=== PATIENT | male | born 1985 | race Two or more races ===

== ENCOUNTER 2022-03-26 19:02 | Emergency (ER) | payer OTHER ==
[~2022-03-26] VITALS: Ht 175.3 cm; Wt 109.8 kg
[~2022-03-26 19:02] MED LIST: KETO10TA2 PO
[2022-03-26] MEDS ORDERED: ONDANSETRON ODT8 MG PO (23:33)
[2022-03-26] MEDS ORDERED: PEPCID AC20 MG PO (23:33)
== END 2022-03-27 01:29 | disposition home or self-care (01) ==
LOC: ER 19:02
DX: K52.9 Noninfective gastroenteritis and colitis, unspecified (principal)

== ENCOUNTER 2024-09-18 08:15 | Emergency (ER) | payer OTHER ==
[~2024-09-18] VITALS: Ht 175.3 cm; Wt 112.0 kg
[~2024-09-18 08:15] MED LIST changes: +ONDANSETRON ODT8 MG PO; +PEPCID AC20 MG PO
[2024-09-18] MEDS ORDERED: GUAIFENESIN/DEXTROMETHORPHAN 100MG/10ML BLIST.PACK PO ONE ×2 (09:25→09:30)
[2024-09-18 09:48] LABS: BASO % 0.5 % (0.1-1.2); EOS # 0.11 (0.04-0.54); EOS % 1.7 % (0.7-7.0); LYMPH # 2.26 (1.18-3.74); LYMPH % 35.9 % (19.3-53.1); MEAN PLATELET VOLUME 8.80 fl (9.4-12.4); MONO # 0.50 (0.24-0.82); MONO % 7.9 % (4.7-12.5); NEUT # 3.38 (1.56-6.13); NEUT % 53.7 % (34.0-71.1); RED CELL DISTRIBUTION WIDTH 13.2 % (11.6-14.4)
[2024-09-18 10:17] LABS: COVID-19 AG NEGATIVE (NEGATIVE)
[2024-09-18] MEDS ORDERED: ZYRTEC10 M3 PO (12:12)
[2024-09-18] MEDS ORDERED: GILTUSS COUGH-118 M1 PO (12:12)
[2024-09-18 12:58] VITALS: BP 135/88; O2SAT 96
== END 2024-09-18 12:59 | disposition home or self-care (01) ==
LOC: ER 08:15
PROVIDERS: Preventive Medicine Public Health & General Preventive Medicine
DX: J30.9 Allergic rhinitis, unspecified (principal); R09.82 Postnasal drip; Z20.822 Contact with and (suspected) exposure to COVID-19; Z87.09 Personal history of other diseases of the respiratory system

== ENCOUNTER 2025-01-04 15:55 | Emergency (ER) | payer OTHER ==
[~2025-01-04] VITALS: Ht 175.3 cm; Wt 112.5 kg
[~2025-01-04 15:55] MED LIST changes: +GILTUSS COUGH-118 M1 PO; +ZYRTEC10 M3 PO
[2025-01-04] MEDS ORDERED: ONDANSETRON HCL 2 MG/ML VIAL ONE (17:24)
[2025-01-04] MEDS ORDERED: FAMOTIDINE/PF 20 MG/2 ML VIAL ONE (17:25)
[2025-01-04] MEDS ORDERED: 0.9 % SODIUM CHLORIDE 1,000 ML IV SCH (17:30)
[2025-01-04] MEDS ORDERED: 0.9 % SODIUM CHLORIDE 1,000 ML IV ONE (17:30)
[2025-01-04] MEDS ORDERED: FAMOtidine 10 MG/ML (4ML VIAL) IV PUSH ONE (17:30)
[2025-01-04] MEDS ORDERED: ONDANSETRON HCL 2 MG/ML VIAL IV ONE (17:30)
[2025-01-04] MEDS ORDERED: MORPHINE SULFATE 4 MG/ML CARTRIDGE IV ONE ×2 (17:30→18:45)
[2025-01-04 17:53] LABS: BASO % 0.2 % (0.1-1.2); EOS # 0.03 (0.04-0.54); EOS % 0.3 % (0.7-7.0); LYMPH # 2.05 (1.18-3.74); LYMPH % 17.6 % (19.3-53.1); MEAN PLATELET VOLUME 8.80 fl (9.4-12.4); MONO # 0.61 (0.24-0.82); MONO % 5.2 % (4.7-12.5); NEUT # 8.93 (1.56-6.13); NEUT % 76.4 % (34.0-71.1); RED CELL DISTRIBUTION WIDTH 13.2 % (11.6-14.4)
[2025-01-04 18:09] LABS: ERYTHROCYTE SEDIMENTATION RATE 8 mm/hr (0-15)
[2025-01-04 18:12] LABS: INR 1.15
[2025-01-04 18:17] LABS: ALT/SGPT 42.0 U/L (12-78); AST/SGOT 16.0 U/L (15-37); BILIRUBIN TOTAL 0.35 mg/dL (0.3-1.2); BUN CREA RATIO 11.0 (7.0-25.0); CREATININE SERUM 1.49 mg/dL (0.70-1.30); GFR 51.97; GLOBULINA 3.9 G/DL (2.4-3.5); GLUCOSE FASTING 136.0 mg/dL (65-100); OSMOLALITY SERUM 285.0 MOSM/KG (275-295)
[2025-01-04] MEDS ORDERED: KETOROLAC TROMETHAMINE 30 MG VIAL ONE (21:39)
[2025-01-04 21:40] LABS: URINE APPEARANCE Clear; URINE BILIRRUBIN Negative (NEGATIVE); URINE BLOOD Moderate; URINE COLOR Yellow; URINE GLUCOSE Negative (NEGATIVE); URINE KETONE Trace (NEGATIVE); URINE LEUKOCYTE Negative; URINE NITRATE Negative; URINE PROTEIN Trace (NEGATIVE); URINE UROBILINOGEN 0.2 E.U./dl
[2025-01-04 21:44] LABS: URINE EPITHELIAL CELLS 4.3 uL (0.0-38.8); URINE RBC 39.5 uL (0.0-20.8); URINE WBC 2.3 uL (0.0-23.2)
[2025-01-04 21:50] LABS: URINE BACTERIA 0 uL (0.0-1933); URINE CAST 0.58 uL (0.0-1.40)
[2025-01-04] MEDS ORDERED: KETOROLAC TROMETHAMINE 30 MG VIAL IV ONE (22:15)
[2025-01-05] MEDS ORDERED: CEFTRIAXONE SODIUM 2,000 MG in 0.9 % SODIUM CHLORIDE 100 ML IV ONE (00:15)
[2025-01-05] MEDS ORDERED: TAMSULOSIN HCL 0.4 MG CAP PO ONE ×2 (00:15→02:43)
[2025-01-05] MEDS ORDERED: PYRIDIUM DS200 MG PO (01:02)
[2025-01-05] MEDS ORDERED: ZOFRAN8 MG PO (01:02)
[2025-01-05] MEDS ORDERED: KETO10TA2 PO (01:02)
[2025-01-05] MEDS ORDERED: PEPCID AC20 MG PO (01:02)
[2025-01-05] MEDS ORDERED: 8HR ARTHRITIS650 M1 PO (01:02)
[2025-01-05] MEDS ORDERED: TAMS0.4C PO (01:02)
[2025-01-05] MEDS ORDERED: KETOROLAC TROMETHAMINE 15 MG VIAL IU ONE (01:15)
[2025-01-05] MEDS ORDERED: PROMETHAZINE HCL 25 MG/ML AMPUL IM ONE (01:15)
[2025-01-05] MEDS ORDERED: PROMETHAZINE HCL 25 MG/ML AMPUL ONE (02:43)
[2025-01-05] MEDS ORDERED: KETOROLAC TROMETHAMINE 30 MG VIAL ONE (02:44)
[2025-01-05] MEDS ORDERED: CEFTRIAXONE SODIUM 2,000 MG VIAL ONE (02:44)
[2025-01-05] MEDS ORDERED: LABETALOL HCL 200 MG/40 ML VIAL IV ONE (04:15)
[2025-01-05] MEDS ORDERED: LABETALOL HCL 100 MG/20 ML ML ONE (04:25)
== END 2025-01-05 05:09 | disposition home or self-care (01) ==
LOC: ER 15:56
PROVIDERS: General Practice
DX: R10.A2 Flank pain, left side (principal); N20.1 Calculus of ureter; N20.0 Calculus of kidney